=== PATIENT | female | born 1955 | race Caucasian/White ===

== ENCOUNTER 2020-04-26 02:47 | Emergency (ER) | payer MEDICARE, MEDICAID ==
[2020-04-26 03:15] LABS: ABSOLUTE BASOPHILS # (AUTO) 0.1 10^3/uL (0.0-0.2); ABSOLUTE EOSINOPHILS # (AUTO) 0.2 10^3/uL (0.0-0.6); ABSOLUTE LYMPHOCYTES (AUTO) 2.3 10^3/uL (0.5-4.7); ABSOLUTE MONOCYTES (AUTO) 0.6 10^3/uL (0.1-1.4); ABSOLUTE NEUT (AUTO) 3.3 10^3/uL (1.7-8.2); BASOPHILS % (AUTO) 0.9 % (0-2); HEMATOCRIT 39.5 % (36.0-47.0); HEMOGLOBIN 13.7 g/dL (12.0-15.5); LYMPHOCYTES % (AUTO) 35.9 % (13-45); MEAN CORPUSCULAR HGB CONC 34.7 g/dL (32.0-36.0); MEAN CORPUSCULAR VOLUME 98 fl (80-97); MONOCYTES % (AUTO) 9.6 % (3-13); PLATELET COUNT 311 10^3/uL (150-450); RED BLOOD COUNT 4.02 10^6/uL (3.72-5.28); RED CELL DISTRIBUTION WIDTH 12.9 % (11.5-14.0); SEGMENTED NEUTROPHILS % (AUTO) 50.6 % (42-78); TOTAL CELLS COUNTED % (AUTO) 100 %; WHITE BLOOD COUNT 6.5 10^3/uL (4.0-10.5)
[2020-04-26 03:28] LABS: ALBUMIN 4.7 g/dL (3.5-5.0); ALCOHOL 80 mg/dL (NONE DETECTED); ALKALINE PHOSPHATASE 79 U/L (38-126); ANION GAP 15 (5-19); ASPARTATE AMINO TRANSFERASE 26 U/L (14-36); BILIRUBIN,DIRECT 0.2 mg/dL (0.0-0.4); BILIRUBIN,TOTAL 0.3 mg/dL (0.2-1.3); BLOOD UREA NITROGEN 14 mg/dL (7-20); CALCIUM 9.6 mg/dL (8.4-10.2); CARBON DIOXIDE 22 mmol/L (22-30); CHLORIDE 105 mmol/L (98-107); GLUCOSE 103 mg/dL (75-110); TOTAL PROTEIN 7.9 g/dL (6.3-8.2)
[2020-04-26 03:36] LABS: ACETAMINOPHEN < 10 ug/mL (10-30); SALICYLATE < 1.0 mg/dL (2.0-20.0)
[2020-04-26 03:41] LABS: APPEARANCE,URINE CLEAR; BILIRUBIN,URINE NEGATIVE (NEGATIVE); COLOR,URINE YELLOW; GLUCOSE, URINE NEGATIVE (NEGATIVE); KETONES,URINE NEGATIVE (NEGATIVE); LEUKOCYTE ESTERASE,URINE TRACE (NEGATIVE); NITRITE,URINE NEGATIVE (NEGATIVE); PROTEIN,URINE NEGATIVE (NEGATIVE); URINE SPECIFIC GRAVITY 1.006; UROBILINOGEN,URINE NEGATIVE mg/dL (<2.0)
[2020-04-26 03:56] LABS: URINE AMPHETAMINES SCREEN NEGATIVE; URINE BENZODIAZEPINES SCREEN NEGATIVE; URINE COCAINE SCREEN NEGATIVE; URINE MARIJUANA (THC) SCREEN NEGATIVE; URINE METHADONE SCREEN NEGATIVE; URINE PHENCYCLIDINE SCREEN NEGATIVE
[2020-04-26 03:57] LABS: URINE BARBITURATES SCREEN UNCONFIRMED POSITIVE
[2020-04-26] MEDS ORDERED: HYDROXYZINE HCL 10 MG TABLET PO ONE (04:27)
[2020-04-26] MEDS ORDERED: PROPRANOLOL HCL 20 MG TABLET PO ONE (04:27)
[2020-04-26] MEDS ORDERED: FAMOTIDINE 20 MG TABLET PO ONE (04:28)
[2020-04-26] MEDS ORDERED: ONDANSETRON 4 MG TAB.RAPDIS PO ONE (04:28)
--- NOTE | 2020-04-26 04:29 | ER Document Report ---
Entered by TIFFANI LAMBERT SCRIBE 04/26/20 0417 Acting as scribe for:OLU MOLINA IV, MD ED General - General Mode of Arrival: Medic Information source: Patient <OLU MOLINA IV - Last Filed: 04/26/20 06:12> <MINGO JUSTIN - Last Filed: 04/26/20 08:30> - General Chief Complaint: Medical Clearance Stated Complaint: ETOH Time Seen by Provider: 04/26/20 04:02 Primary Care Provider: JEET TORRES MD [Primary Care Provider] - Follow up as needed Notes: This 65 year old female patient brought in by EMS presents to the ED today for medical clearance to [facility]. Patient states that she is homeless and that she was released from the [facility] due to her history of a "blood clot in my brain." Patient admits to heavy ETOH use, stating that she drank x3 Vodka and OJs last night. Patient reports generalized abdominal pain due to poor appetite and nausea. She also mentions that she has had difficulty sleeping these past few days. Patient reports a history of anxiety, depression, and fibromyalgia. Denies any other complaints. (OLU MOLINA IV) - Related Data Allergies/Adverse Reactions: pregabalin [From Lyrica] Allergy (Verified 04/26/20 04:22) Past Medical History - General Information source: Patient - Social History Smoking Status: Current Every Day Smoker Smoking Education Provided: No Frequency of alcohol use: Heavy Family History: Reviewed & Not Pertinent Musculoskeletal Medical History: Reports Hx Fibromyalgia Psychiatric Medical History: Reports: Hx Anxiety, Hx Depression <OLU MOLINA IV - Last Filed: 04/26/20 06:12> Review of Systems - Review of Systems Constitutional: See HPI EENT: No symptoms reported Cardiovascular: No symptoms reported Respiratory: No symptoms reported Gastrointestinal: See HPI, Abdominal pain, Nausea, Poor appetite Genitourinary: No symptoms reported Female Genitourinary: No symptoms reported Musculoskeletal: No symptoms reported Skin: No symptoms reported Hematologic/Lymphatic: No symptoms reported Neurological/Psychological: No symptoms reported -: Yes All other systems reviewed and negative <OLU MOLINA IV - Last Filed: 04/26/20 06:12> Physical Exam - General General appearance: Alert, Anxious In distress: None - HEENT Head: Normocephalic, Atraumatic Eyes: Normal Pupils: PERRL - Respiratory Respiratory status: No respiratory distress Chest status: Nontender Breath sounds: Normal Chest palpation: Normal - Cardiovascular Rhythm: Regular Heart sounds: Normal auscultation Murmur: No Friction rub: No Gallop: None auscultated - Abdominal Inspection: Normal Distension: No distension Bowel sounds: Normal Tenderness: Nontender - Abdomen soft Organomegaly: No organomegaly - Back Back: Normal, Nontender - Extremities General upper extremity: Normal inspection General lower extremity: Normal inspection - Psychological Associated symptoms: Anxious, Other - Rapid speech, eye contact appropriate - Skin Skin Temperature: Warm Skin Moisture: Dry Skin Color: Normal <OLU MOLINA IV - Last Filed: 04/26/20 06:12> - Vital signs Vitals: Temp Pulse Resp BP Pulse Ox 98.2 F 74 18 125/82 99 04/26/20 03:10 04/26/20 03:10 04/26/20 03:10 04/26/20 03:10 04/26/20 03:10 Course - Laboratory Result Diagrams: 04/26/20 03:05 04/26/20 03:05 - Consults Dr. Eddie Robbins, neurosurgeon, [facility] Time consulted: 06:10 - dr. robbins stated that the pt had 3 head cts that shows the same amount of subdural hematoma and shift. Dr. Robbins stated she is medically cleared from a neurosurgical standpoint for entry into a treatment program at [place] <OLU MOLINA IV - Last Filed: 04/26/20 06:12> - Laboratory Result Diagrams: 04/26/20 03:05 04/26/20 03:05 <MINGO JUSTIN - Last Filed: 04/26/20 08:30> - Re-evaluation Re-evalutation: 04/26/20 06:12 Results of ED MSE discussed with patient. Patient is medically cleared. Please refer to the consult section for the conversation that this MD and with the neurosurgeon at [facility]. (OLU MOLINA IV) - Vital Signs Vital signs: Temp Pulse Resp BP Pulse Ox 97.9 F 69 18 121/79 99 04/26/20 05:53 04/26/20 05:53 04/26/20 05:53 04/26/20 05:53 04/26/20 05:53 - Laboratory Laboratory results interpreted by me: 04/26/20 04/26/20 04/26/20 03:05 03:05 03:25 MCV 98 H MCH 34.0 H Ur Leukocyte Esterase TRACE H Salicylates < 1.0 L Acetaminophen < 10 L - EKG Interpretation by Me Additional EKG results interpreted by me: 04/26/20 06:14 EKG obtained on 04/26/2020 at 0327 hrs. was interpreted by this MD. Findings: Normal sinus rhythm, rate 68, normal axis, P waves proceed QRS complexes, QRS complexes appear narrow, there are no obvious patterns of ST segment elevation or depression present to suggest acute myocardial ischemia or infarction. Impression: Normal sinus rhythm with nonspecific ST segments. (OLU MOLINA IV) - Consults Dr. Eddie Robbins, neurosurgeon, [facility] Reason for consultation: 04/26/20 06:[address] findings (OLU MOLINA IV) Discharge <OUL MOLINA IV - Last Filed: 04/26/20 06:12> <MINGO JUSTIN - Last Filed: 04/26/20 08:30> - Discharge Clinical Impression: Subacute subdural hematoma Elevated blood alcohol level Qualifiers: Blood alcohol level: 80-99 mg/100 ml Qualified Code(s): Y90.4 - Blood alcohol level of 80-99 mg/100 ml Condition: Stable Disposition: OTHER Additional Instructions: You were seen today in the emergency department to get medical clearance for mental health. The bleed you had in your head is stable. Your CT scans were compared and there was no change in the CT. There are no changes. You are medically cleared to go to [facility] center. You can walk over there. Referrals: JEET TORRES MD [Primary Care Provider] - Follow up as needed I personally performed the services described in the documentation, reviewed and edited the documentation which was dictated to the scribe in my presence, and it accurately records my words and actions.
--- NOTE | 2020-04-26 05:27 | RADIOLOGY REPORT (SQ) ---
CLINICAL HISTORY: h/o head injury, c/o headache COMPARISON: None. TECHNIQUE: CT HEAD WITHOUT IV CONTRAST on 04/26/2020 4:26 AM CDT This exam was performed according to our departmental dose-optimization program, which includes automated exposure control, adjustment of the mA and/or kV according to patient size and/or use of iterative reconstruction technique. FINDINGS: There is mostly chronic appearing left parietal subdural hematoma measuring up to 1.3 cm in depth. There is mass effect with 5 mm of [id number] midline shift. There are small hyperdensities anteriorly and posteromedially to suggest an acute component as well. Vivar-white differentiation is preserved. There is no hydrocephalus. There is no significant volume loss for age. The calvarium is intact. Orbits and globes are unremarkable. The paranasal sinuses are clear. Mastoid air cells are clear. IMPRESSION: Acute on chronic left mostly parietal subdural hematoma with mild mass effect or midline shift.
[2020-04-26 05:54] VITALS: BP 121/79
[2020-04-26] MEDS ORDERED: PROPRANOLOL HCL 20 MG TABLET PO SCH (06:00)
[2020-04-26] MEDS ORDERED: PANTOPRAZOLE SODIUM 40 MG TABLET.DR PO SCH (06:00)
[2020-04-26] MEDS ORDERED: TRAMADOL HCL 50 MG TABLET PO SCH (06:00)
[2020-04-26] MEDS ORDERED: HYDROXYZINE HCL 10 MG TABLET PO SCH (10:00)
[2020-04-26] MEDS ORDERED: METHYLPREDNISOLONE 4 MG TABLET PO SCH (10:00)
[2020-04-26] MEDS ORDERED: IBUPROFEN 800 MG TABLET PO SCH (10:00)
[2020-04-26] MEDS ORDERED: BUPROPION HCL 75 MG TABLET PO SCH (10:00)
[2020-04-26] MEDS ORDERED: DULOXETINE HCL 30 MG CAPSULE.DR PO SCH (10:00)
--- NOTE | 2020-04-26 19:01 | EKG REPORT ---
SEVERITY:- NORMAL ECG - SINUS RHYTHM : Confirmed by: Danna Tam MD 26-Apr-2020 19:00:34
[2020-04-26] MEDS ORDERED: ATORVASTATIN CALCIUM 40 MG TABLET PO SCH (22:00)
--- NOTE | 2020-04-27 08:00 | ER Document Report ---
Doctor's Note Notes: 04/26/20 08:30 PHYSICAL EXAMINATION: GENERAL: Appears well, healthy, well-nourished, no acute distress. LUNGS: Equal breath sounds bilaterally and clear to auscultation. No wheezes rales or rhonchi. CARDIOVASCULAR: S1-S2, regular rate, regular rhythm. Radial pulses 2+, normal. ABDOMEN: Normoactive bowel sounds. Soft, nontender, no guarding, no rebound tenderness, and no masses palpated. PSYCH: Normal mood, normal affect. Patient denies any suicidal or homicidal ideation. Patient is requesting to her discharge paperwork. And I called [facility] center I explained to the nurse that the patient's bleed is stable and there are no changes and that she is medically clear. Patient is to walk over to [facility]. Follow-up precautions were given. Verbal discharge instructions were given to the patient. They verbalized understanding. They are stable for discharge.
== END 2020-04-26 09:04 | disposition other institution (70) ==
LOC: ER 02:47
DX: S06.5X9A Traumatic subdural hemorrhage with loss of consciousness of unspecified duration, initial encounter (principal); F10.10 Alcohol abuse, uncomplicated; F41.9 Anxiety disorder, unspecified; F32.9 Major depressive disorder, single episode, unspecified; M79.7 Fibromyalgia; R63.0 Anorexia; R11.0 Nausea; G47.00 Insomnia, unspecified; Y90.4 Blood alcohol level of 80-99 mg/100 ml; X58.XXXA Exposure to other specified factors, initial encounter; Z59.0 Homelessness; Z88.8 Allergy status to other drugs, medicaments and biological substances; F17.200 Nicotine dependence, unspecified, uncomplicated
CPT/HCPCS: 93005; 99285; 36415; 80307 ×4; 85025; 80053; 81001; 70450; 93010; A9270 ×6; J3490; S0119